=== PATIENT | female | born 1935 | race Caucasian/White ===

== ENCOUNTER → 2016-04-09 | Outpatient (REF) | payer MEDICARE, MEDICAID ==
[~2016-04-09] MED LIST: /FERG32TA PO; /GLIM2TA PO; ACET-654 PO; ACET50TAOT PO; ACET65SU PR; ADV250INH INH; ADV500INH INH; ALBU17IN INH; ALBU83IN INH; ALDA25TA2 PO; AMAR1TAB PO; AMIT10TA PO; AMLO10TA2 PO; AMLO5CAP PO; AMOX500T2 PO; ASPI1TAB PO; ATOR1TAB21 PO; AUGM875T27 PO; Amlodipine Besylate PO; BISO10TA6 PO; BISO5TAB5 PO; CHLO125TA PO; COLA100C PO; COZAAR 50 MG PO; D 202000 PO; DIGO0.12 PO; DIGO0.127 PO; DULC10SU2 PR; ENEMENE3 PR; FISH1000 PO; FLUC10TA PO; FURO1TAB15 PO; FURO20TA2 PO; FURO40TA2 PO; GABA-279 PO; GLIM1TAB PO; GLIM2TA PO; GUAI1TAB PO; HYDR20IN2 PO; INSUDET SC; INSUHUMDS SC; LASI20TA PO; LASI80TA PO; LEVA250T PO; LEXA5TAB13 PO; LIPI20TA PO; LISI-538 PO; LISI10TA4 PO; LOSA100T36 PO; MILKSUS PO; MUCI600T34 PO; NORV5TAB PO; Neurontin; OMEG100011 PO; OMEP40CA2 PO; PANT40TA2 PO; PRED10TA PO; PRIL40CA PO; SENN8.6T8 PO; SENO8.6T2 PO; SPIR1CAP INH; TIOT18INH INH; ULTR50TA PO; VALS1TAB49 PO; VITA-122 PO; VITA100066 PO; VITMTA PO; WARF-23 PO; XOPEAER INH; ZITH500T PO; spiriva INH
[2016-04-09 08:57] LABS: INR 1.03
[2016-04-09 09:20] LABS: CALCIUM LEVEL 8.8 MG/DL (8.8-10.2); CREATININE FOR GFR 1.37 MG/DL (0.55-1.02); GLOMERULAR FILTRATION RATE 39.5 (>32); POTASSIUM SERUM 3.9 MEQ/L (3.5-5.1)
== END | disposition home or self-care (01) ==
LOC: SKLAB7 08:09
PROVIDERS: ATTEND Internal Medicine
DX: Z51.81 Encounter for therapeutic drug level monitoring (principal); Z79.01 Long term (current) use of anticoagulants

== ENCOUNTER → 2016-04-12 | Outpatient (REF) | END | disposition home or self-care (01) | LOC: SKLAB7 14:33 | PROVIDERS: ATTEND Internal Medicine | DX: R39.15 Urgency of urination (principal) ==

== ENCOUNTER → 2016-04-13 | Outpatient (REF) | payer MEDICARE, MEDICAID | END | disposition home or self-care (01) | LOC: SKLAB7 22:39 | PROVIDERS: ATTEND Internal Medicine | DX: R39.15 Urgency of urination (principal) ==

== ENCOUNTER → 2016-04-14 | Outpatient (REF) | payer MEDICARE, MEDICAID | END | disposition home or self-care (01) | LOC: SKLAB7 18:03 | PROVIDERS: ATTEND Internal Medicine | DX: Z13.9 Encounter for screening, unspecified (principal) ==

== ENCOUNTER → 2016-04-15 | Outpatient (REF) ==
[2016-04-15 09:13] LABS: INR 1.07
== END ==
LOC: SKLAB7 07:00
PROVIDERS: ATTEND Internal Medicine
DX: I48.91 Unspecified atrial fibrillation (principal)

== ENCOUNTER → 2016-04-19 | Outpatient (REF) | payer MEDICARE, MEDICAID ==
[2016-04-19 08:53] LABS: INR 1.32
[2016-04-19 15:25] LABS: BASO % 0.1 % (0.0-1.0); EOS # 0.1 K/mm3 (0.0-0.50); EOS % 0.7 % (0.0-3.0); LARGE UNSTAINED CELL # 0.1 K/mm3 (0.0-0.4); LARGE UNSTAINED CELL % 0.4 % (0.0-4.0); LYMPH # 0.4 K/mm3 (1.5-4.5); LYMPH % 3.1 % (24.0-44.0); MEAN CORPUSCULAR HEMOGLOBIN 27.9 pg (27.0-33.0); MEAN CORPUSCULAR HGB CONC 33.7 g/dl (32.0-36.5); MEAN CORPUSCULAR VOLUME 82.8 fl (80.0-96.0); MONO # 0.4 K/mm3 (0.0-0.8); NEUTROPHILS # 10.9 K/mm3 (1.8-7.7); NEUTROPHILS % 92.7 % (36.0-66.0); PLATELET COUNT, AUTOMATED 204 k/mm3 (150-450); RED CELL DISTRIBUTION WIDTH 14.5 % (11.5-14.5); WHITE BLOOD COUNT 11.8 K/mm3 (4.0-10.0)
[2016-04-19 15:44] LABS: CALCIUM LEVEL 8.1 MG/DL (8.8-10.2); CREATININE FOR GFR 1.39 MG/DL (0.55-1.02); GLOMERULAR FILTRATION RATE 38.8 (>32); POTASSIUM SERUM 4.7 MEQ/L (3.5-5.1)
--- NOTE | 2016-04-19 16:20 | REP ---
KUB: Single view: History: Nausea, vomiting, and fever. Findings: The bowel gas pattern is unremarkable. There is an S-shaped lumbar scoliotic curve. Diffuse degenerative disc and osteoarthritic facet changes are seen. No bony destructive lesion is seen. Impression: Unremarkable bowel gas pattern. Signed by Andrei Crawford MD 04/19/2016 05:42 P
--- NOTE | 2016-04-19 16:28 | REP ---
Portable chest x-ray: Supine AP film. History: Nausea, vomiting and fever. 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 Oxygen tubing is seen. The lungs are symmetrically aerated and free of infiltrate. Pleural angles are sharp. Moderate cardiomegaly is observed unchanged. The aorta is calcific and tortuous. Pulmonary vasculature is cephalized. There is no evidence of pulmonary edema or focal infiltrate. There are old healed rib fractures on the left. Impression: Cardiomegaly with vascular cephalization and pacemaker. No evidence of pulmonary edema or pleural effusion. Signed by Andrei Crawford MD 04/19/2016 05:42 P
== END | disposition home or self-care (01) ==
LOC: SKLAB7 07:00
PROVIDERS: ATTEND Internal Medicine
DX: R50.9 Fever, unspecified (principal); I51.7 Cardiomegaly; Z95.0 Presence of cardiac pacemaker

== ENCOUNTER → 2016-04-20 | Outpatient (REF) | payer MEDICARE, MEDICAID | END | disposition home or self-care (01) | LOC: SKLAB7 07:18 | PROVIDERS: ATTEND Internal Medicine | DX: R50.9 Fever, unspecified (principal) ==

== ENCOUNTER → 2016-04-22 | Outpatient (REF) | payer MEDICARE, MEDICAID ==
[2016-04-22 08:30] LABS: INR 1.85
== END | disposition home or self-care (01) ==
LOC: SKLAB7 07:00
PROVIDERS: ATTEND Internal Medicine
DX: Z51.81 Encounter for therapeutic drug level monitoring (principal); Z79.01 Long term (current) use of anticoagulants

== ENCOUNTER → 2016-04-26 | Outpatient (REF) | payer MEDICARE, MEDICAID ==
[2016-04-26 08:34] LABS: INR 3.05
== END | disposition home or self-care (01) ==
LOC: SKLAB7 12:42
PROVIDERS: ATTEND Internal Medicine
DX: Z51.81 Encounter for therapeutic drug level monitoring (principal); Z79.01 Long term (current) use of anticoagulants

== ENCOUNTER → 2016-04-29 | Outpatient (REF) | payer MEDICARE, MEDICAID | END | disposition home or self-care (01) | LOC: SKLAB3 07:00 | PROVIDERS: ATTEND Internal Medicine | DX: Z53.8 Procedure and treatment not carried out for other reasons (principal) ==

== ENCOUNTER → 2016-05-04 | Outpatient (REF) | payer MEDICARE, MEDICAID ==
[2016-05-04 16:15] LABS: MEAN CORPUSCULAR HEMOGLOBIN 27.6 pg (27.0-33.0); MEAN CORPUSCULAR HGB CONC 32.1 g/dl (32.0-36.5); MEAN CORPUSCULAR VOLUME 86.2 fl (80.0-96.0); RED CELL DISTRIBUTION WIDTH 18.4 % (11.5-14.5); WHITE BLOOD COUNT 8.3 K/mm3 (4.0-10.0)
[2016-05-04 16:29] LABS: INR 4.25
[2016-05-04 16:33] LABS: CALCIUM LEVEL 7.7 MG/DL (8.8-10.2); CREATININE FOR GFR 1.73 MG/DL (0.55-1.02); GLOMERULAR FILTRATION RATE 30.1 (>32)
[2016-05-04 16:35] LABS: POTASSIUM SERUM 5.3 MEQ/L (3.5-5.1)
== END | disposition home or self-care (01) ==
LOC: SKLAB7 15:00
PROVIDERS: ATTEND Internal Medicine

== ENCOUNTER 2016-05-05 10:17 | Outpatient (CLI) | payer MEDICARE, MEDICAID ==
[2016-05-05 10:30] VITALS: BP 118/56
[2016-05-05] MEDS ORDERED: diphenhydrAMINE 25 MG CAP PO ONE (11:45)
[2016-05-05] MEDS ORDERED: ACETAMINOPHEN TAB 650MG DOSE (2X325MG) PO PRN (11:45)
[2016-05-05] MEDS ORDERED: ACETAMINOPHEN 500 MG TAB PO ONE (11:45)
[2016-05-05] MEDS ORDERED: guaiFENesin ER 600 MG TAB PO ONE (12:00)
[2016-05-05] MEDS ORDERED: IPRATROPIUM 0.5MG/ALBUTEROL 2.5MG INH SOL UD 3ML (DUONEB)(J7620) INH SCH (12:00)
[2016-05-05 13:10] VITALS: BP 104/50
[2016-05-05 22:00] VITALS: BP 125/82
== END 2016-05-05 22:37 ==
LOC: M OPCLI4PV 10:17 → M MSPAV 10:17 → M OPCLI4PV 10:21
PROVIDERS: ATTEND Internal Medicine
DX: D64.9 Anemia, unspecified (principal); I48.91 Unspecified atrial fibrillation; Z51.81 Encounter for therapeutic drug level monitoring; Z79.01 Long term (current) use of anticoagulants
CPT/HCPCS: 36415; 36430; 86850; 86870; 86900; 86901; 86920; 87804; 94640; P9016

== ENCOUNTER → 2016-05-05 | Outpatient (REF) | payer MEDICARE, MEDICAID | LOC: M LAB REF 00:13 → SKLAB7 00:13 | PROVIDERS: ATTEND Internal Medicine | DX: I48.91 Unspecified atrial fibrillation (principal); Z51.81 Encounter for therapeutic drug level monitoring; Z79.01 Long term (current) use of anticoagulants ==

== ENCOUNTER → 2016-05-06 | Outpatient (REF) | payer MEDICARE, MEDICAID | END | disposition home or self-care (01) | LOC: SKLAB7 07:10 | PROVIDERS: ATTEND Internal Medicine | DX: D64.9 Anemia, unspecified (principal) ==

== ENCOUNTER → 2016-05-13 | Outpatient (REF) | payer MEDICARE, MEDICAID ==
[2016-05-13 08:12] LABS: INR 1.07
== END | disposition home or self-care (01) ==
LOC: SKLAB7 06:33
PROVIDERS: ATTEND Internal Medicine
DX: Z51.81 Encounter for therapeutic drug level monitoring (principal); Z79.01 Long term (current) use of anticoagulants

== ENCOUNTER → 2016-06-02 | Outpatient (REF) | payer MEDICARE, MEDICAID | LOC: SKLAB7 17:15 | PROVIDERS: ATTEND Internal Medicine | DX: D64.9 Anemia, unspecified (principal) ==

== ENCOUNTER → 2016-06-17 | Outpatient (REF) | payer MEDICARE, MEDICAID | LOC: SKLAB7 07:00 | PROVIDERS: ATTEND Internal Medicine | DX: I48.91 Unspecified atrial fibrillation (principal) ==

== ENCOUNTER → 2016-07-13 | Outpatient (CLI) | payer MEDICARE, MEDICAID ==
[~2016-07-13] MED LIST changes: -COLA100C PO; +COLA100C3 PO
--- NOTE | 2016-07-13 12:24 | REP ---
CAROTID ULTRASOUND: Real-time sonographic evaluation and duplex Doppler interrogation of the extracranial carotid vasculature is performed. Once again there is moderate partially calcified plaque seen throughout both common carotid arteries and carotid bulbs extending into the internal and external carotid arteries. There is somewhat elevated peak systolic velocity in both common carotid arteries and internal carotid arteries again suggestive of bilateral stenosis 60-79%, as seen on prior study of 07/23/2015. There is bidirectional flow in the right vertebral artery suggesting some degree of subclavian steal syndrome. There is normal direction of flow in the left vertebral artery. RIGHT LEFT Peak systolic velocity ICA 126.6 cm/s 133.0 cm/s End diastolic velocity ICA 9.9 cm/s 0 Peak systolic velocity CCA 129.6 cm/s 141.9 cm/s Peak systolic velocity ECA 266.0 cm/s 220.1 cm/s ICA/CCA ratio 0.98 0.88 IMPRESSION: Essentially no change when compared to the prior study of 07/23/2015. 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 Signed by Joseph Sharma MD 07/13/2016 04:23 P
== END ==
LOC: M RAD 10:43
PROVIDERS: ATTEND Surgery Vascular Surgery
DX: I65.8 Occlusion and stenosis of other precerebral arteries (principal)

== ENCOUNTER → 2016-07-22 | Outpatient (REF) | payer MEDICARE, MEDICAID ==
[2016-07-22 08:27] LABS: MEAN CORPUSCULAR HEMOGLOBIN 24.2 pg (27.0-33.0); MEAN CORPUSCULAR HGB CONC 31.6 g/dl (32.0-36.5); MEAN CORPUSCULAR VOLUME 76.5 fl (80.0-96.0); RED CELL DISTRIBUTION WIDTH 16.3 % (11.5-14.5); WHITE BLOOD COUNT 9.2 K/mm3 (4.0-10.0)
[2016-07-22 09:05] LABS: CALCIUM LEVEL 8.4 MG/DL (8.8-10.2); CREATININE FOR GFR 1.23 MG/DL (0.55-1.02); GLOMERULAR FILTRATION RATE 44.6 (>32); POTASSIUM SERUM 4.9 MEQ/L (3.5-5.1)
== END ==
LOC: SKLAB7 08:00
PROVIDERS: ATTEND Internal Medicine
DX: I10 Essential (primary) hypertension (principal); I50.9 Heart failure, unspecified

== ENCOUNTER → 2016-09-16 | Outpatient (REF) | payer MEDICARE, MEDICAID | LOC: SKLAB7 08:00 | PROVIDERS: ATTEND Internal Medicine | DX: E11.9 Type 2 diabetes mellitus without complications (principal); I48.91 Unspecified atrial fibrillation ==

== ENCOUNTER → 2016-10-21 | Outpatient (REF) | payer MEDICARE, MEDICAID ==
[~2016-10-21] MED LIST changes: -ACET-654 PO; +ACET1TAB17 PO; -AUGM875T27 PO; +AUGM875T28 PO; -COLA100C3 PO; +COLA100C5 PO; +ENEMENE16 PR; -ENEMENE3 PR; -FURO1TAB15 PO; +FURO80TA2 PO; +LEVA1TAB PO; -LEVA250T PO; +LEVAINH INH; -MUCI600T34 PO; +MUCI600T37 PO; -SENO8.6T2 PO; +SENO8.6T5 PO
[2016-10-21 08:14] LABS: MEAN CORPUSCULAR HEMOGLOBIN 24.9 pg (27.0-33.0); MEAN CORPUSCULAR HGB CONC 31.4 g/dl (32.0-36.5); MEAN CORPUSCULAR VOLUME 79.2 fl (80.0-96.0); RED CELL DISTRIBUTION WIDTH 19.3 % (11.5-14.5); WHITE BLOOD COUNT 8.7 K/mm3 (4.0-10.0)
[2016-10-21 09:13] LABS: CALCIUM LEVEL 8.6 MG/DL (8.8-10.2); CREATININE FOR GFR 1.44 MG/DL (0.55-1.02); GLOMERULAR FILTRATION RATE 37.2 (>32)
== END ==
LOC: SKLAB7 07:00
PROVIDERS: ATTEND Internal Medicine
DX: I50.9 Heart failure, unspecified (principal); I48.91 Unspecified atrial fibrillation; E11.9 Type 2 diabetes mellitus without complications

== ENCOUNTER → 2016-12-07 | Outpatient (REF) | payer MEDICARE, MEDICAID | LOC: SKLAB7 14:37 | PROVIDERS: ATTEND Internal Medicine | DX: R30.9 Painful micturition, unspecified (principal) ==

== ENCOUNTER → 2016-12-09 | Outpatient (REF) | payer MEDICARE, MEDICAID ==
[2016-12-09 08:51] LABS: CALCIUM LEVEL 8.6 MG/DL (8.8-10.2); CREATININE FOR GFR 1.71 MG/DL (0.55-1.02); GLOMERULAR FILTRATION RATE 30.5 (>32); POTASSIUM SERUM 5.1 MEQ/L (3.5-5.1)
== END ==
LOC: SKLAB7 08:00
PROVIDERS: ATTEND Internal Medicine
DX: E11.9 Type 2 diabetes mellitus without complications (principal)

== ENCOUNTER → 2016-12-23 | Outpatient (REF) | payer MEDICARE, MEDICAID ==
[2016-12-23 09:35] LABS: DIGOXIN LEVEL 0.1 NG/ML (0.5-2.0)
== END ==
LOC: SKLAB7 08:11
PROVIDERS: ATTEND Internal Medicine
DX: D64.9 Anemia, unspecified (principal)

== ENCOUNTER → 2017-01-20 | Outpatient (REF) | payer MEDICARE, MEDICAID ==
[2017-01-20 09:29] LABS: MEAN CORPUSCULAR HEMOGLOBIN 25.9 pg (27.0-33.0); MEAN CORPUSCULAR HGB CONC 30.5 g/dl (32.0-36.5); MEAN CORPUSCULAR VOLUME 84.9 fl (80.0-96.0); RED CELL DISTRIBUTION WIDTH 17.4 % (11.5-14.5); WHITE BLOOD COUNT 9.1 10^3/uL (4.0-10.0)
[2017-01-20 10:14] LABS: CALCIUM LEVEL 8.6 MG/DL (8.8-10.2); CREATININE FOR GFR 1.5 MG/DL (0.55-1.02); GLOMERULAR FILTRATION RATE 35.5 (>32); POTASSIUM SERUM 4.9 MEQ/L (3.5-5.1)
== END ==
LOC: SKLAB7 07:00
PROVIDERS: ATTEND Internal Medicine
DX: I50.9 Heart failure, unspecified (principal); Z86.73 Personal history of transient ischemic attack (TIA), and cerebral infarction without residual deficits; E11.9 Type 2 diabetes mellitus without complications

== ENCOUNTER → 2017-03-03 | Outpatient (REF) | payer MEDICARE, MEDICAID ==
[2017-03-03 08:52] LABS: BASO % 0.4 % (0.0-1.0); EOS # 0.4 10^3/uL (0.0-0.50); EOS % 3.6 % (0.0-3.0); IMMATURE GRANULOCYTE % 0.9 % (0-0); LYMPH # 1.2 10^3/uL (1.5-4.5); LYMPH % 12.3 % (24.0-44.0); MEAN CORPUSCULAR HEMOGLOBIN 27.4 pg (27.0-33.0); MEAN CORPUSCULAR VOLUME 88.5 fl (80.0-96.0); MONO # 0.7 10^3/uL (0.0-0.8); NEUTROPHILS # 7.4 10^3/uL (1.8-7.7); NEUTROPHILS % 75.8 % (36.0-66.0); PLATELET COUNT, AUTOMATED 262 10^3/uL (150-450); RED CELL DISTRIBUTION WIDTH 17.2 % (11.5-14.5); WHITE BLOOD COUNT 9.8 10^3/uL (4.0-10.0)
[2017-03-03 09:21] LABS: ALBUMIN/GLOBULIN RATIO 0.81 (1.00-1.93); ALKALINE PHOSPHATASE 87 U/L (45-117); ALT/SGPT 14 U/L (12-78); ANION GAP 7 MEQ/L (8-16); AST/SGOT 9 U/L (7-37); BILIRUBIN,DIRECT < 0.1 MG/DL (0.0-0.2); BILIRUBIN,TOTAL 0.3 MG/DL (0.2-1.0); BLOOD UREA NITROGEN 40 MG/DL (7-18); CALCIUM LEVEL 8.5 MG/DL (8.8-10.2); CARBON DIOXIDE LEVEL 24 MEQ/L (21-32); CHLORIDE LEVEL 108 MEQ/L (98-107); CHOLESTEROL LEVEL 235 MG/DL (<200); CREATININE FOR GFR 1.39 MG/DL (0.55-1.02); GLOMERULAR FILTRATION RATE 38.7 (>32); GLUCOSE, FASTING 125 MG/DL (83-110); SODIUM LEVEL 139 MEQ/L (136-145); TOTAL PROTEIN 6.7 GM/DL (6.4-8.2); TRIGLYCERIDES LEVEL 268 MG/DL (<150)
[2017-03-03 09:22] LABS: POTASSIUM SERUM 5.7 MEQ/L (3.5-5.1)
== END ==
LOC: SKLAB7 13:08
PROVIDERS: ATTEND Internal Medicine
DX: I50.9 Heart failure, unspecified (principal); E11.9 Type 2 diabetes mellitus without complications

== ENCOUNTER → 2017-03-04 | Outpatient (REF) | payer MEDICARE, MEDICAID | LOC: M LAB 16:35 | PROVIDERS: ATTEND Internal Medicine | DX: E87.5 Hyperkalemia (principal) ==

== ENCOUNTER → 2017-03-05 | Outpatient (REF) | payer MEDICARE, MEDICAID ==
[2017-03-05 13:03] LABS: CALCIUM LEVEL 8.3 MG/DL (8.8-10.2); CREATININE FOR GFR 1.69 MG/DL (0.55-1.02); GLOMERULAR FILTRATION RATE 30.9 (>32)
[2017-03-05 13:08] LABS: POTASSIUM SERUM 5.7 MEQ/L (3.5-5.1)
== END ==
LOC: SKLAB7 11:38
PROVIDERS: ATTEND Internal Medicine
DX: E87.5 Hyperkalemia (principal)

== ENCOUNTER → 2017-03-06 | Outpatient (REF) | payer MEDICARE, MEDICAID ==
[2017-03-06 10:52] LABS: CALCIUM LEVEL 7.9 MG/DL (8.8-10.2); CREATININE FOR GFR 1.76 MG/DL (0.55-1.02); GLOMERULAR FILTRATION RATE 29.5 (>32)
[2017-03-06 11:03] LABS: POTASSIUM SERUM 5.5 MEQ/L (3.5-5.1)
== END ==
LOC: SKLAB7 09:15 → M LAB 09:15
PROVIDERS: ATTEND Internal Medicine
DX: E87.5 Hyperkalemia (principal)

== ENCOUNTER → 2017-03-08 | Outpatient (REF) | payer MEDICARE, MEDICAID | LOC: SKLAB7 23:16 | PROVIDERS: ATTEND Internal Medicine | DX: I50.9 Heart failure, unspecified (principal) ==

== ENCOUNTER → 2017-03-08 | Outpatient (REF) | payer MEDICARE, MEDICAID ==
[2017-03-08 07:58] LABS: CALCIUM LEVEL 8.2 MG/DL (8.8-10.2); CREATININE FOR GFR 1.54 MG/DL (0.55-1.02); GLOMERULAR FILTRATION RATE 34.4 (>32)
[2017-03-08 08:11] LABS: POTASSIUM SERUM 5.3 MEQ/L (3.5-5.1)
[2017-03-08 20:54] LABS: BASO # 0.1 10^3/uL (0.0-0.2); BASO % 0.3 % (0.0-1.0); EOS # 0.2 10^3/uL (0.0-0.50); EOS % 1.3 % (0.0-3.0); IMMATURE GRANULOCYTE % 0.7 % (0-0); LYMPH % 5.5 % (24.0-44.0); MEAN CORPUSCULAR HEMOGLOBIN 27.2 pg (27.0-33.0); MEAN CORPUSCULAR HGB CONC 30.8 g/dl (32.0-36.5); MEAN CORPUSCULAR VOLUME 88.2 fl (80.0-96.0); MONO # 1.6 10^3/uL (0.0-0.8); MONO % 8.7 % (0.0-5.0); NEUTROPHILS # 15.3 10^3/uL (1.8-7.7); NEUTROPHILS % 83.5 % (36.0-66.0); PLATELET COUNT, AUTOMATED 254 10^3/uL (150-450); WHITE BLOOD COUNT 18.3 10^3/uL (4.0-10.0)
[2017-03-08 21:10] LABS: CALCIUM LEVEL 8.2 MG/DL (8.8-10.2); CREATININE FOR GFR 1.63 MG/DL (0.55-1.02); GLOMERULAR FILTRATION RATE 32.2 (>32); POTASSIUM SERUM 4.8 MEQ/L (3.5-5.1)
== END ==
LOC: SKLAB7 08:32
PROVIDERS: ATTEND Internal Medicine
DX: E87.5 Hyperkalemia (principal)

== ENCOUNTER → 2017-03-08 | Outpatient (REF) | payer MEDICARE, MEDICAID ==
--- NOTE | 2017-03-08 21:10 | REPUSA ---
Clinical history: cough. Comparison: None. Findings: The mediastinum is within normal limits. The heart is enlarged. There is mild diffuse pulmo nary vascular congestion with bilateral lower lobe infiltrate and pleural effusions. The osseous stru ctures and soft tissues are unremarkable. Impression: Cardiomegaly, with minimal congestive heart failure, bilateral lower lobe infiltrate and pleural effusions.diomegaly.
== END ==
LOC: SKLAB7 20:34
PROVIDERS: ATTEND Internal Medicine
DX: J90 Pleural effusion, not elsewhere classified (principal); R09.89 Other specified symptoms and signs involving the circulatory and respiratory systems; I51.7 Cardiomegaly; I50.9 Heart failure, unspecified; E87.5 Hyperkalemia

== ENCOUNTER → 2017-03-09 | Outpatient (REF) | payer MEDICARE, MEDICAID | LOC: SKLAB3 07:00 | PROVIDERS: ATTEND Internal Medicine | DX: E87.5 Hyperkalemia (principal) ==

== ENCOUNTER → 2017-03-24 | Outpatient (REF) | payer MEDICARE, MEDICAID ==
[2017-03-24 10:18] LABS: DIGOXIN LEVEL 0.1 NG/ML (0.5-2.0)
== END ==
LOC: SKLAB7 07:00
PROVIDERS: ATTEND Internal Medicine
DX: I48.91 Unspecified atrial fibrillation (principal); E11.9 Type 2 diabetes mellitus without complications; E03.9 Hypothyroidism, unspecified

== ENCOUNTER → 2017-04-11 | Outpatient (REF) | payer MEDICARE, MEDICAID ==
[2017-04-11 18:52] LABS: BASO % 0.4 % (0.0-1.0); EOS # 0.1 10^3/uL (0.0-0.50); HEMATOCRIT 29.3 % (36.0-47.0); HEMOGLOBIN 9.1 g/dl (12.0-16.0); IMMATURE GRANULOCYTE # 0.1 10^3/uL (0-0); LYMPH # 1.6 10^3/uL (1.5-4.5); LYMPH % 14.3 % (24.0-44.0); MEAN CORPUSCULAR HEMOGLOBIN 26.5 pg (27.0-33.0); MEAN CORPUSCULAR HGB CONC 31.1 g/dl (32.0-36.5); MEAN CORPUSCULAR VOLUME 85.2 fl (80.0-96.0); MONO # 1.1 10^3/uL (0.0-0.8); MONO % 9.8 % (0.0-5.0); NEUTROPHILS # 8.4 10^3/uL (1.8-7.7); NEUTROPHILS % 73.5 % (36.0-66.0); PLATELET COUNT, AUTOMATED 233 10^3/uL (150-450); RED BLOOD COUNT 3.44 10^6/uL (4.00-5.40); RED CELL DISTRIBUTION WIDTH 16.9 % (11.5-14.5); WHITE BLOOD COUNT 11.4 10^3/uL (4.0-10.0)
== END ==
LOC: SKLAB7 17:44
DX: I51.7 Cardiomegaly (principal); R05 Cough; R50.9 Fever, unspecified
CPT/HCPCS: 71045

== ENCOUNTER → 2017-05-06 | Outpatient (REF) | payer MEDICARE, MEDICAID ==
[2017-05-06 12:24] LABS: BASO % 0.2 % (0.0-1.0); EOS # 0.5 10^3/uL (0.0-0.50); EOS % 5.7 % (0.0-3.0); HEMATOCRIT 31.5 % (36.0-47.0); HEMOGLOBIN 9.5 g/dl (12.0-16.0); IMMATURE GRANULOCYTE # 0.1 10^3/uL (0-0); IMMATURE GRANULOCYTE % 0.6 % (0-0); LYMPH # 1.2 10^3/uL (1.5-4.5); LYMPH % 14.3 % (24.0-44.0); MEAN CORPUSCULAR HEMOGLOBIN 26.2 pg (27.0-33.0); MEAN CORPUSCULAR HGB CONC 30.2 g/dl (32.0-36.5); MONO # 0.5 10^3/uL (0.0-0.8); MONO % 6.2 % (0.0-5.0); NEUTROPHILS # 5.9 10^3/uL (1.8-7.7); PLATELET COUNT, AUTOMATED 230 10^3/uL (150-450); RED BLOOD COUNT 3.62 10^6/uL (4.00-5.40); RED CELL DISTRIBUTION WIDTH 17.8 % (11.5-14.5); WHITE BLOOD COUNT 8.1 10^3/uL (4.0-10.0)
[2017-05-06 12:53] LABS: ANION GAP 6 MEQ/L (8-16); BLOOD UREA NITROGEN 39 MG/DL (7-18); CALCIUM LEVEL 8.2 MG/DL (8.8-10.2); CARBON DIOXIDE LEVEL 27 MEQ/L (21-32); CHLORIDE LEVEL 104 MEQ/L (98-107); CREATININE FOR GFR 1.43 MG/DL (0.55-1.30); GLOMERULAR FILTRATION RATE 37.4 (>32); GLUCOSE, FASTING 180 MG/DL (70-100); NT-PRO BNP 2507 PG/ML (<450); POTASSIUM SERUM 4.6 MEQ/L (3.5-5.1); SODIUM LEVEL 137 MEQ/L (136-145)
== END ==
LOC: SKLAB7 10:46
DX: R05 Cough (principal); R06.2 Wheezing
CPT/HCPCS: 71045

== ENCOUNTER → 2017-05-27 | Outpatient (REF) | payer MEDICARE, MEDICAID | LOC: SKLAB7 12:50 | DX: M25.512 Pain in left shoulder (principal) | CPT/HCPCS: 73020 ==

== ENCOUNTER → 2017-06-03 | Outpatient (REF) | payer MEDICARE, MEDICAID ==
[2017-06-03 10:34] LABS: CHOLESTEROL LEVEL 141 MG/DL (<200); CHOLESTEROL RISK RATIO 4.406 (<5); HDL CHOLESTEROL 32 MG/DL (>40); NON-HDL-C 109 MG/DL; NT-PRO BNP 2787 PG/ML (<450); TRIGLYCERIDES LEVEL 205 MG/DL (<150)
== END ==
LOC: SKLAB7 08:36
DX: I50.9 Heart failure, unspecified (principal); I51.7 Cardiomegaly; Z95.0 Presence of cardiac pacemaker; R91.8 Other nonspecific abnormal finding of lung field
CPT/HCPCS: 71045

== ENCOUNTER → 2017-06-14 | Outpatient (REF) | payer MEDICARE, MEDICAID ==
[2017-06-14 15:59] LABS: BASO % 0.2 % (0.0-1.0); EOS # 0.2 10^3/uL (0.0-0.50); EOS % 1.3 % (0.0-3.0); HEMATOCRIT 21.3 % (36.0-47.0); IMMATURE GRANULOCYTE % 1.6 % (0-3.0); LYMPH # 0.8 10^3/uL (1.5-4.5); LYMPH % 4.7 % (24.0-44.0); MEAN CORPUSCULAR HEMOGLOBIN 27.6 pg (27.0-33.0); MEAN CORPUSCULAR HGB CONC 28.6 g/dl (32.0-36.5); MEAN CORPUSCULAR VOLUME 96.4 fl (80.0-96.0); MONO % 6.1 % (0.0-5.0); NEUTROPHILS # 14.2 10^3/uL (1.8-7.7); NEUTROPHILS % 86.1 % (36.0-66.0); PLATELET COUNT, AUTOMATED 275 10^3/uL (150-450); RED BLOOD COUNT 2.21 10^6/uL (4.00-5.40); RED CELL DISTRIBUTION WIDTH 20.6 % (11.5-14.5); WHITE BLOOD COUNT 16.5 10^3/uL (4.0-10.0)
[2017-06-14 16:02] LABS: HEMOGLOBIN 6.1 g/dl (12.0-16.0)
[2017-06-14 16:31] LABS: ANION GAP 9 MEQ/L (8-16); BLOOD UREA NITROGEN 83 MG/DL (7-18); CALCIUM LEVEL 7.4 MG/DL (8.8-10.2); CARBON DIOXIDE LEVEL 24 MEQ/L (21-32); CHLORIDE LEVEL 103 MEQ/L (98-107); CREATININE FOR GFR 1.71 MG/DL (0.55-1.30); GLOMERULAR FILTRATION RATE 30.4 (>32); GLUCOSE, FASTING 259 MG/DL (70-100); NT-PRO BNP 4057 PG/ML (<450); SODIUM LEVEL 136 MEQ/L (136-145)
[2017-06-14 16:34] LABS: POTASSIUM SERUM 5.3 MEQ/L (3.5-5.1)
== END ==
LOC: SKLAB7 15:16
DX: R53.1 Weakness (principal)
CPT/HCPCS: 80048

== ENCOUNTER 2017-06-15 12:40 | Outpatient (CLI) | payer MEDICARE, MEDICAID ==
[2017-06-15] MEDS: ACETAMINOPHEN 325 MG TAB PO (12:52)
[2017-06-15] MEDS ORDERED: ACETAMINOPHEN 325 MG TAB PO (15:00)
[2017-06-15] MEDS: FUROSEMIDE 20 MG/2 ML VIAL (J1940) IV (15:01)
== END 2017-06-15 17:30 | disposition home or self-care (01) ==
LOC: M INFU 12:40
DX: D64.9 Anemia, unspecified (principal); I10 Essential (primary) hypertension; E78.00 Pure hypercholesterolemia, unspecified; M12.9 Arthropathy, unspecified; M54.9 Dorsalgia, unspecified; E11.9 Type 2 diabetes mellitus without complications; J44.9 Chronic obstructive pulmonary disease, unspecified; Z79.891 Long term (current) use of opiate analgesic; Z79.899 Other long term (current) drug therapy; Z88.8 Allergy status to other drugs, medicaments and biological substances; Z87.891 Personal history of nicotine dependence; Z95.0 Presence of cardiac pacemaker
CPT/HCPCS: 36430

== ENCOUNTER → 2017-06-15 | Outpatient (REF) | payer MEDICARE, MEDICAID ==
[2017-06-15 11:10] LABS: POTASSIUM SERUM 4.5 MEQ/L (3.5-5.1)
[2017-06-15 13:04] LABS: IMMEDIATE SPIN CROSSMATCH 1 2
== END ==
LOC: SKLAB7 07:00
DX: I50.9 Heart failure, unspecified (principal)
CPT/HCPCS: 84132

== ENCOUNTER → 2017-06-16 | Outpatient (REF) | payer MEDICARE, MEDICAID ==
[2017-06-16 08:37] LABS: MEAN CORPUSCULAR HEMOGLOBIN 28.4 pg (27.0-33.0); MEAN CORPUSCULAR HGB CONC 29.6 g/dl (32.0-36.5); MEAN CORPUSCULAR VOLUME 95.7 fl (80.0-96.0); PLATELET COUNT, AUTOMATED 247 10^3/uL (150-450); RED BLOOD COUNT 2.82 10^6/uL (4.00-5.40); RED CELL DISTRIBUTION WIDTH 19.1 % (11.5-14.5)
[2017-06-16 09:38] LABS: ANION GAP 9 MEQ/L (8-16); BLOOD UREA NITROGEN 83 MG/DL (7-18); CARBON DIOXIDE LEVEL 29 MEQ/L (21-32); CHLORIDE LEVEL 104 MEQ/L (98-107); CREATININE FOR GFR 1.42 MG/DL (0.55-1.30); DIGOXIN LEVEL 0.1 NG/ML (0.5-2.0); GLOMERULAR FILTRATION RATE 37.7 (>32); GLUCOSE, FASTING 118 MG/DL (70-100); POTASSIUM SERUM 4.2 MEQ/L (3.5-5.1); SODIUM LEVEL 142 MEQ/L (136-145)
[2017-06-16 09:45] LABS: ESTIMATED AVERAGE GLUCOSE 88 MG/DL (60-110); HEMOGLOBIN A1c 4.7 %
== END ==
LOC: SKLAB7 11:08
DX: D64.9 Anemia, unspecified (principal); I48.91 Unspecified atrial fibrillation; Z79.899 Other long term (current) drug therapy
CPT/HCPCS: 80162

== ENCOUNTER → 2017-06-17 | Outpatient (REF) | payer MEDICARE, MEDICAID ==
[2017-06-17 08:19] LABS: HEMATOCRIT 29.7 % (36.0-47.0); HEMOGLOBIN 8.6 g/dl (12.0-16.0); MEAN CORPUSCULAR HEMOGLOBIN 27.6 pg (27.0-33.0); MEAN CORPUSCULAR VOLUME 95.2 fl (80.0-96.0); PLATELET COUNT, AUTOMATED 290 10^3/uL (150-450); RED BLOOD COUNT 3.12 10^6/uL (4.00-5.40); RED CELL DISTRIBUTION WIDTH 19.1 % (11.5-14.5); WHITE BLOOD COUNT 11.1 10^3/uL (4.0-10.0)
[2017-06-17 08:37] LABS: ANION GAP 6 MEQ/L (8-16); BLOOD UREA NITROGEN 71 MG/DL (7-18); CALCIUM LEVEL 8.4 MG/DL (8.8-10.2); CARBON DIOXIDE LEVEL 29 MEQ/L (21-32); CHLORIDE LEVEL 106 MEQ/L (98-107); CREATININE FOR GFR 1.35 MG/DL (0.55-1.30); GLUCOSE, FASTING 154 MG/DL (70-100); POTASSIUM SERUM 4.2 MEQ/L (3.5-5.1); SODIUM LEVEL 141 MEQ/L (136-145)
== END ==
LOC: SKLAB7 07:00
DX: D64.9 Anemia, unspecified (principal); E11.9 Type 2 diabetes mellitus without complications
CPT/HCPCS: 36415

== ENCOUNTER → 2017-06-20 | Outpatient (REF) | payer MEDICARE, MEDICAID ==
[2017-06-20 11:52] LABS: HEMATOCRIT 29.2 % (36.0-47.0); HEMOGLOBIN 8.4 g/dl (12.0-16.0); MEAN CORPUSCULAR HEMOGLOBIN 27.6 pg (27.0-33.0); MEAN CORPUSCULAR HGB CONC 28.8 g/dl (32.0-36.5); MEAN CORPUSCULAR VOLUME 96.1 fl (80.0-96.0); PLATELET COUNT, AUTOMATED 262 10^3/uL (150-450); RED BLOOD COUNT 3.04 10^6/uL (4.00-5.40); RED CELL DISTRIBUTION WIDTH 17.5 % (11.5-14.5); WHITE BLOOD COUNT 9.1 10^3/uL (4.0-10.0)
[2017-06-20 12:15] LABS: ANION GAP 11 MEQ/L (8-16); BLOOD UREA NITROGEN 69 MG/DL (7-18); CALCIUM LEVEL 7.8 MG/DL (8.8-10.2); CARBON DIOXIDE LEVEL 26 MEQ/L (21-32); CHLORIDE LEVEL 103 MEQ/L (98-107); CREATININE FOR GFR 1.64 MG/DL (0.55-1.30); GLOMERULAR FILTRATION RATE 31.9 (>32); GLUCOSE, FASTING 312 MG/DL (70-100); POTASSIUM SERUM 4.5 MEQ/L (3.5-5.1); SODIUM LEVEL 140 MEQ/L (136-145)
== END ==
LOC: SKLAB7 11:00
DX: I50.9 Heart failure, unspecified (principal); E11.9 Type 2 diabetes mellitus without complications
CPT/HCPCS: 80048

== ENCOUNTER → 2017-06-24 | Outpatient (REF) | payer MEDICARE, MEDICAID ==
[2017-06-24 13:35] LABS: HEMATOCRIT 30.3 % (36.0-47.0); HEMOGLOBIN 8.5 g/dl (12.0-16.0); MEAN CORPUSCULAR HEMOGLOBIN 27.1 pg (27.0-33.0); MEAN CORPUSCULAR HGB CONC 28.1 g/dl (32.0-36.5); MEAN CORPUSCULAR VOLUME 96.5 fl (80.0-96.0); PLATELET COUNT, AUTOMATED 243 10^3/uL (150-450); RED BLOOD COUNT 3.14 10^6/uL (4.00-5.40); RED CELL DISTRIBUTION WIDTH 16.7 % (11.5-14.5); WHITE BLOOD COUNT 8.6 10^3/uL (4.0-10.0)
[2017-06-24 13:40] LABS: ANION GAP 8 MEQ/L (8-16); BLOOD UREA NITROGEN 72 MG/DL (7-18); CALCIUM LEVEL 8.5 MG/DL (8.8-10.2); CARBON DIOXIDE LEVEL 25 MEQ/L (21-32); CHLORIDE LEVEL 109 MEQ/L (98-107); CREATININE FOR GFR 2.03 MG/DL (0.55-1.30); GLUCOSE, FASTING 174 MG/DL (70-100); POTASSIUM SERUM 4.8 MEQ/L (3.5-5.1); SODIUM LEVEL 142 MEQ/L (136-145)
== END ==
LOC: SKLAB7 12:12
DX: I50.9 Heart failure, unspecified (principal); D64.9 Anemia, unspecified
CPT/HCPCS: 80048

== ENCOUNTER → 2017-06-26 | Outpatient (CLI) | payer MEDICARE, MEDICAID | LOC: M RAD 19:43 | DX: I51.7 Cardiomegaly (principal); J81.0 Acute pulmonary edema; J90 Pleural effusion, not elsewhere classified; J98.11 Atelectasis; R06.02 Shortness of breath; R09.81 Nasal congestion | CPT/HCPCS: 71045 ==

== ENCOUNTER → 2017-06-26 | Outpatient (REF) | payer MEDICARE, MEDICAID ==
[2017-06-26 21:23] LABS: BASO % 0.3 % (0.0-1.0); EOS # 0.4 10^3/uL (0.0-0.50); EOS % 3.8 % (0.0-3.0); HEMOGLOBIN 8.1 g/dl (12.0-16.0); IMMATURE GRANULOCYTE % 0.7 % (0-3.0); LYMPH # 0.4 10^3/uL (1.5-4.5); LYMPH % 4.5 % (24.0-44.0); MEAN CORPUSCULAR HEMOGLOBIN 26.7 pg (27.0-33.0); MEAN CORPUSCULAR HGB CONC 27.9 g/dl (32.0-36.5); MEAN CORPUSCULAR VOLUME 95.7 fl (80.0-96.0); MONO # 0.7 10^3/uL (0.0-0.8); MONO % 7.3 % (0.0-5.0); NEUTROPHILS # 8.1 10^3/uL (1.8-7.7); NEUTROPHILS % 83.4 % (36.0-66.0); PLATELET COUNT, AUTOMATED 201 10^3/uL (150-450); RED BLOOD COUNT 3.03 10^6/uL (4.00-5.40); RED CELL DISTRIBUTION WIDTH 16.3 % (11.5-14.5); WHITE BLOOD COUNT 9.8 10^3/uL (4.0-10.0)
[2017-06-26 21:46] LABS: ANION GAP 4 MEQ/L (8-16); BLOOD UREA NITROGEN 73 MG/DL (7-18); CALCIUM LEVEL 8.2 MG/DL (8.8-10.2); CARBON DIOXIDE LEVEL 27 MEQ/L (21-32); CHLORIDE LEVEL 110 MEQ/L (98-107); CREATININE FOR GFR 2.07 MG/DL (0.55-1.30); GLOMERULAR FILTRATION RATE 24.4 (>32); GLUCOSE, FASTING 176 MG/DL (70-100); SODIUM LEVEL 141 MEQ/L (136-145)
[2017-06-26 21:47] LABS: POTASSIUM SERUM 5.5 MEQ/L (3.5-5.1)
== END ==
LOC: SKLAB7 19:40
DX: R06.02 Shortness of breath (principal); R09.81 Nasal congestion

== ENCOUNTER → 2017-06-27 | Outpatient (REF) | payer MEDICARE, MEDICAID ==
[2017-06-27 09:46] LABS: ANION GAP 7 MEQ/L (8-16); BLOOD UREA NITROGEN 79 MG/DL (7-18); CALCIUM LEVEL 8.3 MG/DL (8.8-10.2); CARBON DIOXIDE LEVEL 26 MEQ/L (21-32); CHLORIDE LEVEL 108 MEQ/L (98-107); CREATININE FOR GFR 1.94 MG/DL (0.55-1.30); GLOMERULAR FILTRATION RATE 26.3 (>32); GLUCOSE, FASTING 140 MG/DL (70-100); SODIUM LEVEL 141 MEQ/L (136-145)
[2017-06-27 09:50] LABS: POTASSIUM SERUM 5.4 MEQ/L (3.5-5.1)
== END ==
LOC: SKLAB7 07:07
DX: I50.9 Heart failure, unspecified (principal); E11.9 Type 2 diabetes mellitus without complications
CPT/HCPCS: 36415

== ENCOUNTER → 2017-10-06 | Outpatient (CLI) | payer MEDICARE, MEDICAID | LOC: M RAD 16:34 | DX: R91.8 Other nonspecific abnormal finding of lung field (principal); R09.02 Hypoxemia | CPT/HCPCS: 71045 ==

== ENCOUNTER → 2017-10-06 | Outpatient (REF) | payer MEDICARE, MEDICAID ==
[2017-10-06 08:03] LABS: HEMATOCRIT 35.3 % (36.0-47.0); HEMOGLOBIN 10.4 g/dl (12.0-15.5); MEAN CORPUSCULAR HEMOGLOBIN 24.9 pg (27.0-33.0); MEAN CORPUSCULAR HGB CONC 29.5 g/dl (32.0-36.5); MEAN CORPUSCULAR VOLUME 84.4 fl (80.0-96.0); PLATELET COUNT, AUTOMATED 271 10^3/uL (150-450); RED BLOOD COUNT 4.18 10^6/uL (4.00-5.40); RED CELL DISTRIBUTION WIDTH 19.6 % (11.5-14.5); WHITE BLOOD COUNT 12.9 10^3/uL (4.0-10.0)
[2017-10-06 08:27] LABS: ANION GAP 3 MEQ/L (8-16); BLOOD UREA NITROGEN 62 MG/DL (7-18); CALCIUM LEVEL 8.1 MG/DL (8.8-10.2); CARBON DIOXIDE LEVEL 27 MEQ/L (21-32); CHLORIDE LEVEL 108 MEQ/L (98-107); CREATININE FOR GFR 1.61 MG/DL (0.55-1.30); GLOMERULAR FILTRATION RATE 32.6 (>32); GLUCOSE, FASTING 210 MG/DL (70-100); SODIUM LEVEL 138 MEQ/L (136-145)
[2017-10-06 08:39] LABS: POTASSIUM SERUM 6.6 MEQ/L (3.5-5.1)
== END ==
LOC: SKLAB7 07:14
DX: R09.02 Hypoxemia (principal)

== ENCOUNTER → 2017-10-22 | Outpatient (CLI) | payer MEDICARE, MEDICAID ==
[2017-10-22 21:44] LABS: HEMOGLOBIN 10.4 g/dl (12.0-15.5); MEAN CORPUSCULAR HEMOGLOBIN 24.6 pg (27.0-33.0); MEAN CORPUSCULAR HGB CONC 29.7 g/dl (32.0-36.5); MEAN CORPUSCULAR VOLUME 82.7 fl (80.0-96.0); PLATELET COUNT, AUTOMATED 284 10^3/uL (150-450); RED BLOOD COUNT 4.23 10^6/uL (4.00-5.40); RED CELL DISTRIBUTION WIDTH 18.6 % (11.5-14.5)
[2017-10-22 22:00] LABS: POS COUNT POS FLAG
[2017-10-22 22:01] LABS: WHITE BLOOD COUNT 32.9 10^3/uL (4.0-10.0)
[2017-10-22 22:08] LABS: ANION GAP 12 MEQ/L (8-16); BLOOD UREA NITROGEN 118 MG/DL (7-18); CALCIUM LEVEL 7.7 MG/DL (8.8-10.2); CARBON DIOXIDE LEVEL 22 MEQ/L (21-32); CHLORIDE LEVEL 107 MEQ/L (98-107); CREATININE FOR GFR 1.97 MG/DL (0.55-1.30); GLOMERULAR FILTRATION RATE 25.8 (>32); GLUCOSE, FASTING 154 MG/DL (70-100); POTASSIUM SERUM 4.8 MEQ/L (3.5-5.1); SODIUM LEVEL 141 MEQ/L (136-145)
== END ==
LOC: M LAB 20:51 → SKLAB7 21:09
DX: R09.3 Abnormal sputum (principal); I50.9 Heart failure, unspecified; J91.8 Pleural effusion in other conditions classified elsewhere
CPT/HCPCS: 71045

== ENCOUNTER → 2017-10-24 | Outpatient (REF) | payer MEDICARE, MEDICAID ==
[2017-10-24 08:32] LABS: HEMATOCRIT 26.8 % (36.0-47.0); MEAN CORPUSCULAR HEMOGLOBIN 24.7 pg (27.0-33.0); MEAN CORPUSCULAR HGB CONC 30.2 g/dl (32.0-36.5); MEAN CORPUSCULAR VOLUME 81.7 fl (80.0-96.0); PLATELET COUNT, AUTOMATED 188 10^3/uL (150-450); RED BLOOD COUNT 3.28 10^6/uL (4.00-5.40); WHITE BLOOD COUNT 22.8 10^3/uL (4.0-10.0)
[2017-10-24 08:41] LABS: HEMOGLOBIN 8.1 g/dl (12.0-15.5)
[2017-10-24 08:46] LABS: ANION GAP 11 MEQ/L (8-16); BLOOD UREA NITROGEN 127 MG/DL (7-18); CALCIUM LEVEL 7.5 MG/DL (8.8-10.2); CARBON DIOXIDE LEVEL 23 MEQ/L (21-32); CHLORIDE LEVEL 107 MEQ/L (98-107); CREATININE FOR GFR 2.53 MG/DL (0.55-1.30); GLOMERULAR FILTRATION RATE 19.4 (>32); GLUCOSE, FASTING 122 MG/DL (70-100); SODIUM LEVEL 141 MEQ/L (136-145)
[2017-10-24 08:51] LABS: POTASSIUM SERUM 5.4 MEQ/L (3.5-5.1)
== END ==
LOC: SKLAB7 07:14
DX: D72.829 Elevated white blood cell count, unspecified (principal)
CPT/HCPCS: 80048

== ENCOUNTER → 2017-10-25 | Outpatient (REF) | payer MEDICARE, MEDICAID ==
[2017-10-25 07:53] LABS: ANION GAP 11 MEQ/L (8-16); BLOOD UREA NITROGEN 131 MG/DL (7-18); CALCIUM LEVEL 7.6 MG/DL (8.8-10.2); CARBON DIOXIDE LEVEL 24 MEQ/L (21-32); CHLORIDE LEVEL 107 MEQ/L (98-107); CREATININE FOR GFR 2.27 MG/DL (0.55-1.30); GLOMERULAR FILTRATION RATE 21.9 (>32); GLUCOSE, FASTING 165 MG/DL (70-100); POTASSIUM SERUM 4.8 MEQ/L (3.5-5.1); SODIUM LEVEL 142 MEQ/L (136-145)
== END ==
LOC: SKLAB7 10:03
DX: D72.828 Other elevated white blood cell count (principal)
CPT/HCPCS: 36415

== ENCOUNTER 2017-12-16 13:59 | Outpatient (REF) | payer MEDICARE, MEDICAID ==
[2017-12-19 15:26] LABS: ANION GAP 9 MEQ/L (8-16); BLOOD UREA NITROGEN 62 MG/DL (7-18); CARBON DIOXIDE LEVEL 34 MEQ/L (21-32); CHLORIDE LEVEL 97 MEQ/L (98-107); CREATININE FOR GFR 1.62 MG/DL (0.55-1.30); GLOMERULAR FILTRATION RATE 32.4 (>32); GLUCOSE, FASTING 303 MG/DL (70-100); POTASSIUM SERUM 4.3 MEQ/L (3.5-5.1); SODIUM LEVEL 140 MEQ/L (136-145)
== END 2017-12-19 ==
LOC: SKLAB7 13:59
DX: I50.9 Heart failure, unspecified (principal)
CPT/HCPCS: 80048

== ENCOUNTER → 2017-12-16 | Outpatient (REF) | payer MEDICARE, MEDICAID ==
[2017-12-16 09:09] LABS: ANION GAP 8 MEQ/L (8-16); BLOOD UREA NITROGEN 54 MG/DL (7-18); CALCIUM LEVEL 8.7 MG/DL (8.8-10.2); CARBON DIOXIDE LEVEL 34 MEQ/L (21-32); CHLORIDE LEVEL 100 MEQ/L (98-107); CREATININE FOR GFR 1.33 MG/DL (0.55-1.30); GLOMERULAR FILTRATION RATE 40.7 (>32); GLUCOSE, FASTING 129 MG/DL (70-100); POTASSIUM SERUM 4.1 MEQ/L (3.5-5.1); SODIUM LEVEL 142 MEQ/L (136-145)
== END ==
LOC: SKLAB7 13:55
DX: I50.9 Heart failure, unspecified (principal)
CPT/HCPCS: 80048

== ENCOUNTER → 2018-01-02 | Outpatient (REF) | payer MEDICARE, MEDICAID ==
[2018-01-02 10:22] LABS: ANION GAP 6 MEQ/L (8-16); BLOOD UREA NITROGEN 91 MG/DL (7-18); CALCIUM LEVEL 8.7 MG/DL (8.8-10.2); CARBON DIOXIDE LEVEL 34 MEQ/L (21-32); CHLORIDE LEVEL 103 MEQ/L (98-107); CREATININE FOR GFR 1.44 MG/DL (0.55-1.30); GLOMERULAR FILTRATION RATE 37.1 (>32); GLUCOSE, FASTING 173 MG/DL (70-100); POTASSIUM SERUM 4.4 MEQ/L (3.5-5.1); SODIUM LEVEL 143 MEQ/L (136-145)
== END ==
LOC: SKLAB3 11:43
DX: I50.9 Heart failure, unspecified (principal); N18.9 Chronic kidney disease, unspecified
CPT/HCPCS: 71045

== ENCOUNTER 2018-02-06 19:26 | Outpatient (REF) | payer MEDICARE, MEDICAID ==
[2018-02-07 07:52] LABS: ANION GAP 9 MEQ/L (8-16); BLOOD UREA NITROGEN 128 MG/DL (7-18); CALCIUM LEVEL 8.5 MG/DL (8.8-10.2); CARBON DIOXIDE LEVEL 34 MEQ/L (21-32); CHLORIDE LEVEL 95 MEQ/L (98-107); CREATININE FOR GFR 1.86 MG/DL (0.55-1.30); GLOMERULAR FILTRATION RATE 27.6 (>32); GLUCOSE, FASTING 156 MG/DL (70-100); POTASSIUM SERUM 3.6 MEQ/L (3.5-5.1); SODIUM LEVEL 138 MEQ/L (136-145)
== END 2018-02-07 ==
LOC: SKLAB7 19:26
DX: R56.9 Unspecified convulsions (principal); I63.9 Cerebral infarction, unspecified
CPT/HCPCS: 80048

== ENCOUNTER → 2018-03-06 | Outpatient (REF) | payer MEDICARE, MEDICAID ==
[2018-03-06 13:34] LABS: HEMATOCRIT 31.6 % (36.0-47.0); HEMOGLOBIN 9.9 g/dl (12.0-15.5); MEAN CORPUSCULAR HEMOGLOBIN 26.5 pg (27.0-33.0); MEAN CORPUSCULAR HGB CONC 31.3 g/dl (32.0-36.5); MEAN CORPUSCULAR VOLUME 84.7 fl (80.0-96.0); PLATELET COUNT, AUTOMATED 175 10^3/uL (150-450); RED BLOOD COUNT 3.73 10^6/uL (4.00-5.40); RED CELL DISTRIBUTION WIDTH 24.3 % (11.5-14.5); WHITE BLOOD COUNT 12.2 10^3/uL (4.0-10.0)
[2018-03-06 14:21] LABS: ANION GAP 15 MEQ/L (8-16); BLOOD UREA NITROGEN 144 MG/DL (7-18); CALCIUM LEVEL 8.1 MG/DL (8.8-10.2); CARBON DIOXIDE LEVEL 26 MEQ/L (21-32); CHLORIDE LEVEL 88 MEQ/L (98-107); CREATININE FOR GFR 3.25 MG/DL (0.55-1.30); GLOMERULAR FILTRATION RATE 14.5 (>32); GLUCOSE, FASTING 200 MG/DL (70-100); POTASSIUM SERUM 4.3 MEQ/L (3.5-5.1); SODIUM LEVEL 129 MEQ/L (136-145)
== END ==
LOC: SKLAB7 09:58
DX: R06.02 Shortness of breath (principal); I50.9 Heart failure, unspecified; Z95.0 Presence of cardiac pacemaker; I51.7 Cardiomegaly; J90 Pleural effusion, not elsewhere classified
CPT/HCPCS: 71045